=== PATIENT | male | born 1965 | race African-American/Black ===

== ENCOUNTER 2018-01-17 16:52 | Inpatient (IN) | payer OTHER ==
[2018-01-17] MEDS ORDERED: MELATONIN 5 MG TABLETS PO PRN (22:00)
--- NOTE | 2018-01-17 22:43 | HP ---
COWS - Scale Resting Pulse: 0= [place] 80 or Below Sweatin=Flushed/Facial Moisture Restless Observation: 1= Difficult to Sit Still Pupil Size: 1= Pupils >than Normal Bone or Joint Aches: 4=Acute Joint/Muscle Pain Runny Nose/ Eye Tearin= Nasal Congestion GI Upset > 30mins: 2= Nausea/Diarrhea (diarrhea x 1) Tremor Observation: 2= Slight Tremor Visible Yawning Observation: 0= None Anxiety or Irritability: 4=Extreme Anxiety Goose Flesh Skin: 0=Smooth Skin COWS Score: 17 Admission [facility] Chief Complaint: Heroin withdrawal symptoms Allergies/Adverse Reactions: Allergies Allergy/AdvReac Type Severity Reaction Status Date / Time No Known Allergies Allergy Verified 01/17/18 22:41 History of Present Illness: 53 years old male with a 26 years history of heroin dependence is seeking admission to detox. Patient has been in previous detox and reports 13 years of sobriety. He has medical history of hypertension. He denies suicide attempt and suicidal ideation at this time. Patient reports that he was first admitted to [facility] in 2005. Exam Limitations: No Limitations - Ebola screening Have you traveled outside of the country in the last 21 days: No Have you had contact with anyone from an Ebola affected area: No Do you have a fever: No - Review of Systems Constitutional: Chills, Malaise, Changes in sleep EENT: reports: Blurred Vision, Nose Congestion Respiratory: reports: No Symptoms reported Cardiac: reports: No Symptoms Reported GI: reports: Diarrhea (x 2), Poor Appetite, Poor Fluid Intake, Abdominal cramping : reports: No Symptoms Reported Musculoskeletal: reports: Back Pain Integumentary: reports: Dryness Neuro: reports: Tremors Endocrine: reports: No Symptoms Reported Hematology: reports: No Symptoms Reported Psychiatric: reports: Mood/Affect Appropiate, Depressed Other Systems: Reviewed and Negative Patient History - Patient Medical History Hx Anemia: No Hx Asthma: No Hx Chronic Obstructive Pulmonary Disease (COPD): No Hx Cancer: No Hx Cardiac Disorders: No Hx Congestive Heart Failure: No Hx Hypertension: Yes (Atenolol) Hx Hypercholesterolemia: No Hx Pacemaker: No HX Cerebrovascular Accident: No Hx Seizures: No Hx Diabetes: No Hx Gastrointestinal Disorders: No Hx Liver Disease: No Hx Genitourinary Disorders: No Hx Sexually Transmitted Disorders: No Hx Renal Disease (ESRD): No Hx Thyroid Disease: No Hx Human Immunodeficiency Virus (HIV): No (Negative 13 years ago) Hx Hepatitis C: No Hx Depression: Yes Hx Suicide Attempt: No (Denies suicidal ideation at this time) Hx Bipolar Disorder: No Hx Schizophrenia: No - Patient Surgical History Past Surgical History: Yes Other Surgical History: HERNIA REPAIR 2009 - PPD History Previous Implant?: No Documented Results: Negative w/proof Implanted On Prior R Admission?: No PPD to be Administered?: Yes - Reproductive History Patient is a Female of Child Bearing Age (11 -55 yrs old): No (MALE) - Smoking Cessation Smoking history: Current every day smoker Have you smoked in the past 12 months: Yes Aproximately how many cigarettes per day: 4 Hx Chewing Tobacco Use: No Initiated information on smoking cessation: Yes 'Breaking Loose' booklet given: 01/17/18 - Substance & Tx. History Hx Alcohol Use: No Hx Substance Use: Yes Substance Use Type: Heroin, Marijuana, Opiates Hx Substance Use Treatment: Yes - Substances Abused Heroin Route: Inhalation Frequency: Daily Amount used: 5 bags Age of first use: 14 Date of Last Use: 01/17/18 Marijuana/Hashish Route: Smoking Frequency: Daily Amount used: 2 pulls Age of first use: 13 Date of Last Use: 01/17/18 Family Disease History - Family Disease History Family Disease History: Diabetes: Grandparent, Heart Disease: Sister, Other: Father (Colitis -), Mother (HIV- ), Brother (HIV- ) Admission Physical Exam S - Physical General Appearance: Yes: Moderate Distress, Tremorous, Anxious HEENTM: Yes: EOMI, Normal ENT Inspection, Normal Voice, RAJINDER Respiratory: Yes: Lungs Clear, Normal Breath Sounds, No Respiratory Distress Neck: Yes: Supple Breast: Yes: Breast Exam Deferred Cardiology: Yes: Regular Rhythm, Tachycardia Abdominal: Yes: Normal Bowel Sounds Genitourinary: Yes: Within Normal Limits Back: Yes: Normal Inspection Musculoskeletal: Yes: Back pain Extremities: Yes: Tremors Neurological: Yes: Alert, Normal Mood/Affect Integumentary: Yes: Warm Lymphatic: Yes: Within Normal Limits - Diagnostic (1) Hypertension Current Visit: Yes Status: Chronic Qualifiers: Hypertension type: essential hypertension Qualified Code(s): I10 - Essential (primary) hypertension (2) Opioid dependence with withdrawal Current Visit: Yes Status: Chronic Cleared for Admission [facility] - Detox or Rehab [facility] Level of Care: Medically Managed Detox Regimen/Protocol: Methadone
[2018-01-17] MEDS ORDERED: METHADONE HCL 10 MG TABLET (FOR DETOX USE ONLY) PO ONE ×2 (23:00→23:02)
[2018-01-17] MEDS ORDERED: MAGNESIUM HYDROX 2400MG/30ML ORAL SUSPENSION 30 ML CUP PO PRN (23:02)
[2018-01-17] MEDS ORDERED: MENTHOL/PHENOL 1 EACH UD MM PRN (23:02)
[2018-01-17] MEDS ORDERED: LOPERAMIDE HCL 2 MG CAPSULE PO PRN (23:02)
[2018-01-17] MEDS ORDERED: P-EPHED 60MG/TRIPROLIDI 2.5MG TABLET PO PRN (23:02)
[2018-01-17] MEDS ORDERED: MAG HYDROX/AL HYDROX/SIMETH 30 ML UNIT-DOSE CUP PO PRN (23:02)
[2018-01-17] MEDS ORDERED: NICOTINE POLACRILEX 2 MG GUM BC PRN (23:02)
[2018-01-17] MEDS ORDERED: guaiFENesin/D-METHORPHAN HB 10 ML UNIT-DOSE CUPS PO PRN (23:02)
[2018-01-17] MEDS ORDERED: diazePAM 5 MG TABLET PO PRN (23:02)
[2018-01-17] MEDS ORDERED: MAGNESIUM CITRATE 300 ML BOTTLE PO PRN (23:02)
[2018-01-17 23:31] VITALS: BMI 27.7
[2018-01-18] MEDS ORDERED: diazePAM 5 MG TABLET PO PRN (01:16)
[2018-01-18] MEDS ORDERED: METHADONE HCL 10 MG TABLET (FOR DETOX USE ONLY) PO ONE ×4 (01:16→23:00)
[2018-01-18] MEDS ORDERED: cloNIDine HCL 0.1 MG TABLET PO ONE (02:25)
[2018-01-18] MEDS: diazePAM 5 MG TABLET PO PRN ×3 (02:29→22:23)
--- NOTE | 2018-01-18 02:58 | PN ---
BHS Progress Note Note: Patient's blood pressure was B/P 173/107. Patient is asymptomatic. He reports that he is not compliant with his antihypertensive medication administration Vital Signs Temperature 97.6 F 01/18/18 02:59 Pulse Rate 71 01/18/18 02:59 Respiratory Rate 20 01/18/18 02:59 Blood Pressure 173/107 H 01/18/18 02:59 O2 Sat by Pulse Oximetry (%) Action: Clonidine 0.1mg tablet oral ordered.
[2018-01-18] MEDS: PRENATAL VITAMINS W/ FOLIC ACID TABLET (FP) PO SCH (10:08)
[2018-01-18] MEDS: NICOTINE 14 MG/24 HOURS TOPICAL PATCH TD SCH (10:10)
--- NOTE | 2018-01-18 10:43 | PN ---
BHS COWS - Scale Resting Pulse: 0= [place] 80 or Below Sweatin= Chills/Flushing Restless Observation: 1= Difficult to Sit Still Pupil Size: 1= Pupils >than Normal Bone or Joint Aches: 2= Severe Diffuse Aches Runny Nose/ Eye Tearin= Nasal Congestion GI Upset > 30mins: 0= None Tremor Observation of Outstretched Hands: 2= Slight Tremor Visible Yawning Observation: 0= None Anxiety or Irritability: 0= None Goose Flesh Skin: 0=Smooth Skin COWS Score: 8 BHS Progress Note (SOAP) Subjective: PATIENT C/O CHILLS, RUNNY NOSE, BODY ACHES AND INTERRUPTED SLEEP. Objective: 01/18/18 10:40 Vital Signs Temperature 98.1 F 01/18/18 09:22 Pulse Rate 70 01/18/18 09:22 Respiratory Rate 18 01/18/18 09:22 Blood Pressure 173/99 H 01/18/18 09:22 O2 Sat by Pulse Oximetry (%) SKIN WARM, + FACIAL MOISTURE ENT +NASAL CONGESTION CAR S1S2 RESP CTA BL EXT FULL ROM, AMB AD POPPY, +TREMORS VISIBLE Assessment: 01/18/18 10:42 ELEVATED BP WITHDRAWAL SX Plan: WILL ADD AMLODIPINE 10MG DAILY CONTINUE DETOX REGIMEN ENCOURAGE ORAL FLUIDS CONTINUE TO MONITOR CLINICALLY
[2018-01-18 11:44] LABS: HEMATOCRIT 35.8 % (35.4-49); HEMOGLOBIN 11.7 GM/dL (11.7-16.9); MCH 28.2 pg (25.7-33.7); MCHC 32.7 g/dl (32.0-35.9); MEAN CELL VOLUME 86.1 fl (80-96); MEAN PLT VOLUME 8.7 fl (7.5-11.1); PLATELET COUNT 194 K/MM3 (134-434); RBC 4.16 M/mm3 (4.00-5.60); RDW 13.9 % (11.9-15.9); WHITE BLOOD COUNT 5.4 K/mm3 (4.0-10.0)
[2018-01-18 11:47] LABS: ALBUMIN 3.2 g/dl (3.4-5.0); ALK PHOS 61 U/L (45-117); ANION GAP 8 MMOL/L (8-16); BILIRUBIN,TOTAL 0.2 mg/dL (0.2-1); BLOOD UREA NITROGEN 17 mg/dL (7-18); CALCIUM 8.6 mg/dL (8.5-10.1); CHLORIDE 110 mmol/L (98-107); CO2 29 mmol/L (21-32); CREATININE 1.2 mg/dL (0.55-1.3); GLUCOSE,RANDOM 93 mg/dL (74-106); POTASSIUM 3.7 mmol/L (3.5-5.1); SGOT/AST 9 U/L (15-37); SGPT/ALT 10 U/L (13-61); SODIUM 146 mmol/L (136-145); TOT PROT 5.9 g/dl (6.4-8.2)
[2018-01-18] MEDS: amLODIPine BESYLATE 10 MG TABLET (FP) PO SCH (12:17)
[2018-01-18] MEDS: THIAMINE HCL 100 MG TABLET (FP) PO SCH (22:22)
--- NOTE | 2018-01-19 09:52 | EKG ---
Test Reason : Blood Pressure : / mmHG Vent. Rate : 061 BPM Atrial Rate : 061 BPM P-R Int : 140 ms QRS Dur : 094 ms QT Int : 406 ms P-R-T Axes : 072 062 054 degrees QTc Int : 408 ms NORMAL SINUS RHYTHM NONSPECIFIC T WAVE ABNORMALITY ABNORMAL ECG NO PREVIOUS ECGS AVAILABLE Confirmed by MIRNA RIDLEY MD ([id number]) on 01/19/2018 9:52:16 AM Referred By: Confirmed By:MIRNA RIDLEY MD
[2018-01-19] MEDS ORDERED: METHADONE HCL 5 MG TABLET (FOR DETOX USE ONLY) PO ONE (10:00)
[2018-01-19] MEDS ORDERED: METHADONE HCL 10 MG TABLET (FOR DETOX USE ONLY) PO ONE (10:00)
[2018-01-19] MEDS: cloNIDine HCL 0.1 MG TABLET PO SCH ×2 (10:08→22:15)
[2018-01-19] MEDS: PRENATAL VITAMINS W/ FOLIC ACID TABLET (FP) PO SCH (10:08)
[2018-01-19] MEDS: amLODIPine BESYLATE 10 MG TABLET (FP) PO SCH (10:08)
[2018-01-19] MEDS: NICOTINE 14 MG/24 HOURS TOPICAL PATCH TD SCH (10:09)
--- NOTE | 2018-01-19 10:21 | PN ---
BHS COWS - Scale Resting Pulse: 0= [place] 80 or Below Sweatin= Chills/Flushing Restless Observation: 1= Difficult to Sit Still Pupil Size: 1= Pupils >than Normal Bone or Joint Aches: 1= Mild Discomfort Runny Nose/ Eye Tearin= None GI Upset > 30mins: 0= None Tremor Observation of Outstretched Hands: 0= None Yawning Observation: 0= None Anxiety or Irritability: 2=Irritable/Anxious Goose Flesh Skin: 0=Smooth Skin COWS Score: 6 BHS Progress Note (SOAP) Subjective: PATIENT C/O MILD BODY ACHES, CHILLS AND ANXIETY. Objective: 01/19/18 10:18 Vital Signs Temperature 99.0 F 01/19/18 10:00 Pulse Rate 80 01/19/18 10:00 Respiratory Rate 20 01/19/18 10:00 Blood Pressure 148/96 01/19/18 10:00 O2 Sat by Pulse Oximetry (%) Vital Signs Temperature 99.0 F 01/19/18 10:00 Pulse Rate 80 01/19/18 10:00 Respiratory Rate 20 01/19/18 10:00 Blood Pressure 148/96 01/19/18 10:00 O2 Sat by Pulse Oximetry (%) Laboratory Tests 01/18/18 01/18/18 01/18/18 07:00 07:00 07:00 WBC 5.4 RBC 4.16 Hgb 11.7 Hct 35.8 MCV 86.1 MCH 28.2 MCHC 32.7 RDW 13.9 Plt Count 194 MPV 8.7 Sodium 146 H Potassium 3.7 Chloride 110 H Carbon Dioxide 29 Anion Gap 8 BUN 17 Creatinine 1.2 Creat Clearance w eGFR > 60 Random Glucose 93 Calcium 8.6 Total Bilirubin 0.2 AST 9 L ALT 10 L Alkaline Phosphatase 61 Total Protein 5.9 L Albumin 3.2 L RPR Titer Nonreactive PE: SKIN WARM AND DRY CAR S1S2 RESP CTA BL EXT FULL ROM, AMB AD POPPY ALERT AND ORIENTED X 3 Assessment: 01/19/18 10:20 WITHDRAWAL SX ELEVATED BP Plan: CONTINUE DETOX REGIMEN ENCOURAGED ORAL FLUIDS ADD CLONIDINE 0.1MG BID TO REGIMEN FOR BP MANAGEMENT CONTINUE TO MONITOR CLINICALLY
[2018-01-19] MEDS: diazePAM 5 MG TABLET PO PRN ×2 (17:12→22:15)
[2018-01-19 21:26] LABS: URINE APPEARANCE CLEAR; URINE BILIRUBIN NEGATIVE (<2.0 mg/dL); URINE COLOR STRAW; URINE GLUCOSE (UA) NEGATIVE (NEGATIVE); URINE KETONE NEGATIVE (NEGATIVE); URINE LEUK ESTERASE NEGATIVE (NEGATIVE); URINE NITRITE NEGATIVE (NEGATIVE); URINE PROTEIN NEGATIVE (NEGATIVE); URINE UROBILINOGEN NEGATIVE mg/dL (0.2-1.0)
[2018-01-19] MEDS: TOLNAFTATE 1% CREAM 15 GM TUBE TP SCH (22:14)
[2018-01-19] MEDS: THIAMINE HCL 100 MG TABLET (FP) PO SCH (22:14)
[2018-01-20] MEDS ORDERED: METHADONE HCL 5 MG TABLET (FOR DETOX USE ONLY) PO ONE ×2 (10:00)
[2018-01-20] MEDS: PRENATAL VITAMINS W/ FOLIC ACID TABLET (FP) PO SCH (10:15)
[2018-01-20] MEDS: amLODIPine BESYLATE 10 MG TABLET (FP) PO SCH (10:15)
[2018-01-20] MEDS: TOLNAFTATE 1% CREAM 15 GM TUBE TP SCH ×2 (10:15→21:48)
[2018-01-20] MEDS: cloNIDine HCL 0.1 MG TABLET PO SCH ×2 (10:15→21:47)
[2018-01-20] MEDS: NICOTINE 14 MG/24 HOURS TOPICAL PATCH TD SCH (10:15)
--- NOTE | 2018-01-20 12:04 | PN ---
BHS Progress Note (SOAP) Subjective: Sweating, interrupted sleep Objective: 01/20/18 12:01 Last Vital Signs Temp Pulse Resp BP Pulse Ox 97.1 F L 83 18 144/92 01/20/18 09:08 01/20/18 09:08 01/20/18 09:08 01/20/18 09:08 B/P elevated (has HTN, on medication) Laboratory Tests 01/18/18 01/18/18 01/18/18 07:00 07:00 07:00 WBC 5.4 RBC 4.16 Hgb 11.7 Hct 35.8 MCV 86.1 MCH 28.2 MCHC 32.7 RDW 13.9 Plt Count 194 MPV 8.7 Sodium 146 H Potassium 3.7 Chloride 110 H Carbon Dioxide 29 Anion Gap 8 BUN 17 Creatinine 1.2 Creat Clearance w eGFR > 60 Random Glucose 93 Calcium 8.6 Total Bilirubin 0.2 AST 9 L ALT 10 L Alkaline Phosphatase 61 Total Protein 5.9 L Albumin 3.2 L Urine Color Urine Appearance Urine pH Ur Specific [place] Urine Protein Urine Glucose (UA) Urine Ketones Urine Blood Urine Nitrite Urine Bilirubin Urine Urobilinogen Ur Leukocyte Esterase RPR Titer Nonreactive 01/19/18 14:31 WBC RBC Hgb Hct MCV MCH MCHC RDW Plt Count MPV Sodium Potassium Chloride Carbon Dioxide Anion Gap BUN Creatinine Creat Clearance w eGFR Random Glucose Calcium Total Bilirubin AST ALT Alkaline Phosphatase Total Protein Albumin Urine Color Straw Urine Appearance Clear Urine pH 5.0 Ur Specific [place] 1.006 L Urine Protein Negative Urine Glucose (UA) Negative Urine Ketones Negative Urine Blood Negative Urine Nitrite Negative Urine Bilirubin Negative Urine Urobilinogen Negative Ur Leukocyte Esterase Negative RPR Titer Labs reviewed Assessment: 01/20/18 12:03 Withdrawal symptoms Plan: Continue detox Encouraged PO water intake
[2018-01-20] MEDS: diazePAM 5 MG TABLET PO PRN (12:13)
[2018-01-20] MEDS: THIAMINE HCL 100 MG TABLET (FP) PO SCH (21:47)
[2018-01-21] MEDS: amLODIPine BESYLATE 10 MG TABLET (FP) PO SCH (09:04)
[2018-01-21] MEDS: PRENATAL VITAMINS W/ FOLIC ACID TABLET (FP) PO SCH (09:04)
[2018-01-21] MEDS: cloNIDine HCL 0.1 MG TABLET PO SCH ×2 (09:04→22:15)
[2018-01-21] MEDS: TOLNAFTATE 1% CREAM 15 GM TUBE TP SCH ×2 (09:05→22:15)
[2018-01-21] MEDS: IBUPROFEN 400 MG TABLET (FP) PO PRN ×2 (09:57→22:29)
[2018-01-21] MEDS ORDERED: METHADONE HCL 5 MG TABLET (FOR DETOX USE ONLY) PO ONE (10:00)
[2018-01-21] MEDS ORDERED: METHADONE HCL 10 MG TABLET (FOR DETOX USE ONLY) PO ONE (10:00)
[2018-01-21] MEDS: NICOTINE 14 MG/24 HOURS TOPICAL PATCH TD SCH (11:21)
[2018-01-21] MEDS: ACETAMINOPHEN 325 MG TABLET (FP) PO PRN (13:36)
--- NOTE | 2018-01-21 13:36 | PN ---
S Progress Note (SOAP) Subjective: Chills, sweating, anxious; c/o groin pain (chronic) stating he had swelling before in which his doctor removed fluid and that he has been following up with his specialist and that he has follow up appointment post discharge. Patient instructed to use warm compress prn and to take motrin prn until seen by his specialist. Objective: 01/21/18 13:34 Last Vital Signs Temp Pulse Resp BP Pulse Ox 96.7 F L 76 18 143/92 01/21/18 09:00 01/21/18 09:00 01/21/18 09:00 01/21/18 09:00 Laboratory Tests 01/18/18 01/18/18 01/18/18 07:00 07:00 07:00 WBC 5.4 RBC 4.16 Hgb 11.7 Hct 35.8 MCV 86.1 MCH 28.2 MCHC 32.7 RDW 13.9 Plt Count 194 MPV 8.7 Sodium 146 H Potassium 3.7 Chloride 110 H Carbon Dioxide 29 Anion Gap 8 BUN 17 Creatinine 1.2 Creat Clearance w eGFR > 60 Random Glucose 93 Calcium 8.6 Total Bilirubin 0.2 AST 9 L ALT 10 L Alkaline Phosphatase 61 Total Protein 5.9 L Albumin 3.2 L Urine Color Urine Appearance Urine pH Ur Specific [place] Urine Protein Urine Glucose (UA) Urine Ketones Urine Blood Urine Nitrite Urine Bilirubin Urine Urobilinogen Ur Leukocyte Esterase RPR Titer Nonreactive 01/19/18 14:31 WBC RBC Hgb Hct MCV MCH MCHC RDW Plt Count MPV Sodium Potassium Chloride Carbon Dioxide Anion Gap BUN Creatinine Creat Clearance w eGFR Random Glucose Calcium Total Bilirubin AST ALT Alkaline Phosphatase Total Protein Albumin Urine Color Straw Urine Appearance Clear Urine pH 5.0 Ur Specific [place] 1.006 L Urine Protein Negative Urine Glucose (UA) Negative Urine Ketones Negative Urine Blood Negative Urine Nitrite Negative Urine Bilirubin Negative Urine Urobilinogen Negative Ur Leukocyte Esterase Negative RPR Titer Labs reviewed Assessment: 01/21/18 13:36 Withdrawal sxs Plan: Continue detox Encouraged PO water intake
[2018-01-21] MEDS: THIAMINE HCL 100 MG TABLET (FP) PO SCH (22:15)
[2018-01-22] MEDS ORDERED: METHADONE HCL 5 MG TABLET (FOR DETOX USE ONLY) PO ONE (06:00)
[2018-01-22] MEDS ORDERED: TETRAHYDROZOLINE HCL EYE DROPS OU PRN (09:34)
--- NOTE | 2018-01-22 09:35 | PN ---
[facility] Progress Note Note: Vital Signs Temperature 98.4 F 01/22/18 06:08 Pulse Rate 76 01/22/18 06:08 Respiratory Rate 18 01/22/18 06:30 Blood Pressure 133/81 01/22/18 06:08 O2 Sat by Pulse Oximetry (%) Laboratory Last Values WBC 5.4 K/mm3 (4.0-10.0) 01/18/18 07:00 RBC 4.16 M/mm3 (4.00-5.60) 01/18/18 07:00 Hgb 11.7 GM/dL (11.7-16.9) 01/18/18 07:00 Hct 35.8 % (35.4-49) 01/18/18 07:00 MCV 86.1 fl (80-96) 01/18/18 07:00 MCH 28.2 pg (25.7-33.7) 01/18/18 07:00 MCHC 32.7 g/dl (32.0-35.9) 01/18/18 07:00 RDW 13.9 % (11.9-15.9) 01/18/18 07:00 Plt Count 194 K/MM3 (134-434) 01/18/18 07:00 MPV 8.7 fl (7.5-11.1) 01/18/18 07:00 Sodium 146 mmol/L (136-145) H 01/18/18 07:00 Potassium 3.7 mmol/L (3.5-5.1) 01/18/18 07:00 Chloride 110 mmol/L (98-107) H 01/18/18 07:00 Carbon Dioxide 29 mmol/L (21-32) 01/18/18 07:00 Anion Gap 8 MMOL/L (8-16) 01/18/18 07:00 BUN 17 mg/dL (7-18) 01/18/18 07:00 Creatinine 1.2 mg/dL (0.55-1.3) 01/18/18 07:00 Creat Clearance w eGFR > 60 (>60) 01/18/18 07:00 Random Glucose 93 mg/dL (74-106) 01/18/18 07:00 Calcium 8.6 mg/dL (8.5-10.1) 01/18/18 07:00 Total Bilirubin 0.2 mg/dL (0.2-1) 01/18/18 07:00 AST 9 U/L (15-37) L 01/18/18 07:00 ALT 10 U/L (13-61) L 01/18/18 07:00 Alkaline Phosphatase 61 U/L (45-117) 01/18/18 07:00 Total Protein 5.9 g/dl (6.4-8.2) L 01/18/18 07:00 Albumin 3.2 g/dl (3.4-5.0) L 01/18/18 07:00 Urine Color Straw 01/19/18 14:31 Urine Appearance Clear 01/19/18 14:31 Urine pH 5.0 (5.0-8.0) 01/19/18 14:31 Ur Specific [place] 1.006 (1.010-1.035) L 01/19/18 14:31 Urine Protein Negative (NEGATIVE) 01/19/18 14:31 Urine Glucose (UA) Negative (NEGATIVE) 01/19/18 14:31 Urine Ketones Negative (NEGATIVE) 01/19/18 14:31 Urine Blood Negative (NEGATIVE) 01/19/18 14:31 Urine Nitrite Negative (NEGATIVE) 01/19/18 14:31 Urine Bilirubin Negative (<2.0 mg/dL) 01/19/18 14:31 Urine Urobilinogen Negative mg/dL (0.2-1.0) 01/19/18 14:31 Ur Leukocyte Esterase Negative (NEGATIVE) 01/19/18 14:31 RPR Titer Nonreactive (NONREACTIVE) 01/18/18 07:00 c/o of interrupted sleep, body aches, fatigue Aox3 no distress no adventitious breath sounds full ROM ambulatory withdrawal sx increase fluids continue detox continue to monitor d/c in AM
[2018-01-22] MEDS ORDERED: METHADONE HCL 10 MG TABLET (FOR DETOX USE ONLY) PO ONE (10:00)
[2018-01-22] MEDS: PRENATAL VITAMINS W/ FOLIC ACID TABLET (FP) PO SCH (10:11)
[2018-01-22] MEDS: cloNIDine HCL 0.1 MG TABLET PO SCH ×2 (10:12→22:32)
[2018-01-22] MEDS: TOLNAFTATE 1% CREAM 15 GM TUBE TP SCH ×2 (10:12→22:32)
[2018-01-22] MEDS: amLODIPine BESYLATE 10 MG TABLET (FP) PO SCH (10:13)
[2018-01-22] MEDS: NICOTINE 14 MG/24 HOURS TOPICAL PATCH TD SCH (10:14)
[2018-01-22] MEDS: ACETAMINOPHEN 325 MG TABLET (FP) PO PRN (17:15)
[2018-01-22] MEDS: THIAMINE HCL 100 MG TABLET (FP) PO SCH (22:32)
[2018-01-23] MEDS ORDERED: METHADONE HCL 5 MG TABLET (FOR DETOX USE ONLY) PO ONE (06:00)
[2018-01-23 06:24] VITALS: BP 136/80; PULSE 69; TEMP 98.1
[2018-01-23] MEDS: amLODIPine BESYLATE 10 MG TABLET (FP) PO SCH (09:10)
--- NOTE | 2018-01-23 18:05 | DS ---
[facility] Detox Discharge Summary Admission Date: 01/17/18 Discharge Date: 01/23/18 - History Present History: Opioid Dependence Additional Comments: Patient discharged today and denied any complaints. Patient in nad. Pertinent Past History: HTN Nicotine dependence - Physical Exam Results Vital Signs: Vital Signs Temperature 98.1 F 01/23/18 06:23 Pulse Rate 69 01/23/18 06:23 Respiratory Rate 18 01/23/18 06:23 Blood Pressure 136/80 01/23/18 06:23 O2 Sat by Pulse Oximetry (%) Pertinent Admission Physical Exam Findings: Withdrawal sxs Laboratory Tests 01/18/18 01/18/18 01/18/18 07:00 07:00 07:00 WBC 5.4 RBC 4.16 Hgb 11.7 Hct 35.8 MCV 86.1 MCH 28.2 MCHC 32.7 RDW 13.9 Plt Count 194 MPV 8.7 Sodium 146 H Potassium 3.7 Chloride 110 H Carbon Dioxide 29 Anion Gap 8 BUN 17 Creatinine 1.2 Creat Clearance w eGFR > 60 Random Glucose 93 Calcium 8.6 Total Bilirubin 0.2 AST 9 L ALT 10 L Alkaline Phosphatase 61 Total Protein 5.9 L Albumin 3.2 L Urine Color Urine Appearance Urine pH Ur Specific [place] Urine Protein Urine Glucose (UA) Urine Ketones Urine Blood Urine Nitrite Urine Bilirubin Urine Urobilinogen Ur Leukocyte Esterase RPR Titer Nonreactive 01/19/18 14:31 WBC RBC Hgb Hct MCV MCH MCHC RDW Plt Count MPV Sodium Potassium Chloride Carbon Dioxide Anion Gap BUN Creatinine Creat Clearance w eGFR Random Glucose Calcium Total Bilirubin AST ALT Alkaline Phosphatase Total Protein Albumin Urine Color Straw Urine Appearance Clear Urine pH 5.0 Ur Specific [place] 1.006 L Urine Protein Negative Urine Glucose (UA) Negative Urine Ketones Negative Urine Blood Negative Urine Nitrite Negative Urine Bilirubin Negative Urine Urobilinogen Negative Ur Leukocyte Esterase Negative RPR Titer Labs reviewed - Treatment Hospital Course: Detox Protocol Followed, Detoxed Safely, Responded well, Discharged Condition Good - Medication Discharge Medications: Ambulatory Orders Amlodipine Besylate [Norvasc -] 10 mg PO DAILY 01/18/18 Amlodipine Besylate [Norvasc -] 10 mg PO DAILY #30 tablet 01/22/18 - Diagnosis (1) Depression Status: Chronic (2) Nicotine dependence Status: Chronic (3) Opioid dependence with withdrawal Status: Acute (4) Hypertension Status: Chronic Qualifiers: Hypertension type: essential hypertension Qualified Code(s): I10 - Essential (primary) hypertension - AMA Did Patient Leave Against Medical Advice: No (F/U with your PCP within 1-2 weeks )
== END 2018-01-23 09:32 | disposition home or self-care (01) | DRG 773 ==
LOC: YASAS 16:52 → Y3N 23:47
PROC: HZ2ZZZZ Detoxification Services for Substance Abuse Treatment (ICD-10-PCS; principal; 2018-01-23)
DX: F11.23 Opioid dependence with withdrawal (principal); F17.210 Nicotine dependence, cigarettes, uncomplicated; F32.9 Major depressive disorder, single episode, unspecified; I10 Essential (primary) hypertension; R00.0 Tachycardia, unspecified
CPT/HCPCS: 36415; 80053; 81003; 85027; 86593; 93005; 93010; J0735

== ENCOUNTER 2018-11-29 11:56 | Inpatient (IN) | payer OTHER ==
[2018-11-29 16:42] VITALS: BMI 29.2
--- NOTE | 2018-11-29 17:50 | HP ---
COWS - Scale Resting Pulse: 1= [place] 81-100 Sweatin= Chills/Flushing Restless Observation: 1= Difficult to Sit Still Pupil Size: 1= Pupils >than Normal Bone or Joint Aches: 2= Severe Diffuse Aches Runny Nose/ Eye Tearin= Nasal Congestion GI Upset > 30mins: 1= Stomach Cramp Tremor Observation: 1= Tremor [place], Not Seen Yawning Observation: 2= >3x During Session Anxiety or Irritability: 2=Irritable/Anxious Goose Flesh Skin: 0=Smooth Skin COWS Score: 13 CIWA Score - Admission Criteria [facility] Guidelines: Admission for Medically Managed Detox: Requires at least one of the followin. CIWA greater than 12 2. Seizures within the past 24 hours 3. Delirium tremens within the past 24 hours 4. Hallucinations within the past 24 hours 5. Acute intervention needed for co occurring medical disorder 6. Acute intervention needed for co occurring psychiatric disorder 7. Severe withdrawal that cannot be handled at a lower level of care (continued vomiting, continued diarrhea, abnormal vital signs) requiring intravenous medication and/or fluids 8. Admission ROS [facility] Chief Complaint: heroin detox Allergies/Adverse Reactions: Allergies Allergy/AdvReac Type Severity Reaction Status Date / Time No Known Allergies Allergy Verified 11/29/18 16:36 History of Present Illness: Patient is a 53 yo M with a PMhx of HTN, presenting here for heroin detox. Sniffs 3-4 bags of heroin daily. denies IV drug use. Has been using heroin since 14. Says he's been clean since 2005 then last his last year. Never overdosed. Does not carry a narcan pen with him. Never participated in a methadone or suboxone program. 3 cigarettes a day. unemployed. homeless in a long term. - Ebola screening Have you traveled outside of the country in the last 21 days: No Have you had contact with anyone from an Ebola affected area: No - Review of Systems Respiratory: denies: Cough, Shortness of Breath Cardiac: denies: Chest Pain, Palpitations Neuro: reports: Headache. denies: Numbness, Paresthesia Patient History - Patient Medical History Hx Anemia: No Hx Asthma: No Hx Chronic Obstructive Pulmonary Disease (COPD): No Hx Cancer: No Hx Cardiac Disorders: No Hx Congestive Heart Failure: No Hx Hypertension: Yes (Atenolol) Hx Hypercholesterolemia: No Hx Pacemaker: No HX Cerebrovascular Accident: No Hx Seizures: No Hx Diabetes: No Hx Gastrointestinal Disorders: No Hx Liver Disease: No Hx Genitourinary Disorders: No Hx Sexually Transmitted Disorders: No Hx Renal Disease (ESRD): No Hx Thyroid Disease: No Hx Human Immunodeficiency Virus (HIV): No (Negative 13 years ago) Hx Hepatitis C: No Hx Depression: Yes Hx Suicide Attempt: No (Denies suicidal ideation at this time) Hx Bipolar Disorder: No Hx Schizophrenia: No - Patient Surgical History Past Surgical History: Yes Other Surgical History: HERNIA REPAIR 2009 - PPD History Date: 01/20/18 - Smoking Cessation Smoking history: Current every day smoker Have you smoked in the past 12 months: Yes Aproximately how many cigarettes per day: 4 Hx Chewing Tobacco Use: No Initiated information on smoking cessation: Yes 'Breaking Loose' booklet given: 11/29/18 - Substances abused Heroin Substance route: Inhalation Frequency: Daily Amount used: 5BAGS Age of first use: 14 Date of last use: 11/28/18 Family Disease History - Family Disease History Family Disease History: Diabetes: Grandparent, Heart Disease: Sister, Other: Father (Colitis -), Mother (HIV- ), Brother (HIV- ) Admission Physical Exam BHS - Vital Signs Vital Signs: Vital Signs - 24 hr 11/29/18 16:36 Temperature 97.8 F Pulse Rate 63 Respiratory 18 Rate Blood Pressure 134/115 H - Physical General Appearance: Yes: No Apparent Distress HEENTM: Yes: Other (poor dentition) Respiratory: Yes: No Respiratory Distress, No Accessory Muscle Use Cardiology: Yes: Regular Rhythm, Regular Rate Abdominal: Yes: Normal Bowel Sounds, Non Tender Extremities: No: Tremors 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 NML intact, Fully Oriented, Motor Strength 5/5 - Diagnostic (1) Heroin abuse Current Visit: Yes Status: Acute (2) Hypertensive urgency Current Visit: Yes Status: Acute (3) Opioid dependence with withdrawal Current Visit: No Status: Acute (4) Depression Current Visit: No Status: Chronic (5) Hypertension Current Visit: No Status: Chronic Qualifiers: Hypertension type: essential hypertension Qualified Code(s): I10 - Essential (primary) hypertension Screened but not Admitted - Documentation of Visit Level of Care Recommended at this Time: ER Evaluation/Care (sent to the ER for hypertensive crisis) Breathalyzer - Breathalyzer Breathalyzer: 0 Urine Drug Screen - Test Device Lot number: [id number] Expiration date: 08/12/20 - Control Is test valid?: Yes - Results Drug screen NEGATIVE: No Urine drug screen results: THC-Marijuana, FEN-Fentanyl, MOP-Opiates, MTD- Methadone Inpatient Rehab Admission - Rehab Decision to Admit Inpatient rehab admission?: No
[2018-11-29] MEDS ORDERED: MAGNESIUM CITRATE 300 ML BOTTLE PO PRN (18:11)
[2018-11-29] MEDS ORDERED: MAGNESIUM HYDROX 2400MG/30ML ORAL SUSPENSION 30 ML CUP PO PRN (18:11)
[2018-11-29] MEDS ORDERED: MENTHOL/PHENOL 1 EACH UD MM PRN (18:11)
[2018-11-29] MEDS ORDERED: ACETAMINOPHEN 325 MG TABLET (FP) PO PRN ×2 (18:11)
[2018-11-29] MEDS ORDERED: cloNIDine HCL 0.1 MG TABLET PO PRN ×2 (18:11→23:23)
[2018-11-29] MEDS ORDERED: MAG HYDROX/AL HYDROX/SIMETH 30 ML UNIT-DOSE CUP PO PRN (18:11)
[2018-11-29] MEDS ORDERED: BISMUTH SUBSALICYLATE 524 MG/30 ML UD PO PRN (18:11)
[2018-11-29] MEDS ORDERED: IBUPROFEN 400 MG TABLET (FP) PO PRN (18:11)
--- NOTE | 2018-11-29 18:18 | PN ---
Teaching Attending Note Name of Resident: Tracie Marin ATTENDING PHYSICIAN STATEMENT I saw and evaluated the patient. I reviewed the resident's note and discussed the case with the resident. I agree with the resident's findings and plan as documented. SUBJECTIVE: 53 yo h/o opioid use disorder, last year in Feb 2018, here for opioid detox- says using heroin 3 bags IH. h/o HTN- on labetolol- pt taking daily. Pt has PCP. OBJECTIVE: Vital Signs - 24 hr 11/29/18 16:36 Temperature 97.8 F Pulse Rate 63 Respiratory 18 Rate Blood Pressure 134/115 H alert and oriented ASSESSMENT AND PLAN: To ER for HTN management admit for heroin detox
[2018-11-29] MEDS ORDERED: METHADONE HCL 10 MG TABLET (FOR DETOX USE ONLY) PO ONE (18:25)
--- NOTE | 2018-11-29 23:28 | PN ---
S Progress Note Note: HOSPITAL RETURN AFTER BEING CLEARED FOR ELEVATED B/P CLIENT WAS GIVEN CLONIDINE AND TO F/U CLIENT STATES [facility] SCHEDULE IS HIS PERSONAL SCHEDULE ON HOW HE WANTS TO TAKE IT. AND NOT THE RX SCHEDULE HE PRESENTS A/O X3 NAD WILL CONT TO MONITOR CLINICALLY.
[2018-11-30] MEDS ORDERED: METHADONE HCL 10 MG TABLET (FOR DETOX USE ONLY) PO ONE (00:23)
[2018-11-30] MEDS: THIAMINE HCL 100 MG TABLET (FP) PO SCH ×2 (00:25→22:17)
[2018-11-30] MEDS: cloNIDine HCL 0.1 MG TABLET PO PRN ×3 (00:35→22:17)
--- NOTE | 2018-11-30 09:02 | PN ---
BHS COWS - Scale Resting Pulse: 0= [place] 80 or Below Sweatin= Chills/Flushing Restless Observation: 0= Sits Still Pupil Size: 1= Pupils >than Normal Bone or Joint Aches: 2= Severe Diffuse Aches Runny Nose/ Eye Tearin= Nasal Congestion GI Upset > 30mins: 1= Stomach Cramp Tremor Observation of Outstretched Hands: 2= Slight Tremor Visible Yawning Observation: 2= >3x During Session Anxiety or Irritability: 1=Feels Anxious/Irritable Goose Flesh Skin: 3=Piloerection COWS Score: 14 BHS Progress Note (SOAP) Subjective: patient c/o headache with bp elevation 150/110 one dose clonidine 0.1 mg po given begin atenolol 53 years old male 2nd patient [facility] admission admitted on 11/29/18 for opiate withdrawal sx management long history of hypertension treated with atenolol return from ER for rule out malignant hypertension return continuing bp stabilization patient is alert oriented x 3 ambulating steady gait symmetrical posture denies dizziness no chest pain no shortness of breath speech clearly coherently cardiac S1S2 regular rate rhythm respiratory clear lung sound bilaterally on auscultation skin warm Objective: 11/30/18 09:33 Vital Signs Temperature 97.9 F 11/30/18 09:29 Pulse Rate 65 11/30/18 09:29 Respiratory Rate 20 11/30/18 09:29 Blood Pressure 158/110 H 11/30/18 09:29 O2 Sat by Pulse Oximetry (%) 11/30/18 09:33 lab pending one dose of clonidine follow up bp monitoring atenolol home medication Assessment: 11/30/18 09:34 opiate withdrawal sx Plan: continue methadone detox regimen
[2018-11-30 09:54] LABS: HEMATOCRIT 39.3 % (35.4-49); HEMOGLOBIN 13.2 GM/dL (11.7-16.9); MCH 28.4 pg (25.7-33.7); MCHC 33.5 g/dl (32.0-35.9); MEAN CELL VOLUME 84.8 fl (80-96); MEAN PLT VOLUME 8.7 fl (7.5-11.1); PLATELET COUNT 195 K/MM3 (134-434); RBC 4.64 M/mm3 (4.00-5.60); RDW 13.1 % (11.9-15.9); WHITE BLOOD COUNT 4.3 K/mm3 (4.0-10.0)
[2018-11-30] MEDS ORDERED: METHADONE (DETOX) 20 MG, METHADONE (DETOX) 5 MG PO ONE (10:00)
[2018-11-30] MEDS: PRENATAL VITAMINS W/ FOLIC ACID TABLET (FP) PO SCH (10:04)
[2018-11-30 10:06] LABS: ALBUMIN 3.5 g/dl (3.4-5.0); BILIRUBIN,TOTAL 0.5 mg/dL (0.2-1); BLOOD UREA NITROGEN 17.1 mg/dL (7-18); CALCIUM 9.2 mg/dL (8.5-10.1); CREATININE 1.4 mg/dL (0.55-1.3); POTASSIUM 3.9 mmol/L (3.5-5.1); TOT PROT 6.7 g/dl (6.4-8.2)
[2018-11-30] MEDS ORDERED: ATENOLOL 50 MG TABLET (FP) PO ONE (14:00)
[2018-11-30] MEDS: hydrOXYzine PAMOATE 25 MG CAPSULE (FP) PO PRN (17:23)
[2018-11-30] MEDS: METHOCARBAMOL 500 MG TABLET PO PRN ×2 (17:25→22:17)
[2018-12-01] MEDS: cloNIDine HCL 0.1 MG TABLET PO PRN ×2 (07:05→15:19)
[2018-12-01] MEDS ORDERED: METHADONE HCL 10 MG TABLET (FOR DETOX USE ONLY) ONE (08:43)
[2018-12-01] MEDS ORDERED: METHADONE HCL 5 MG TABLET (FOR DETOX USE ONLY) ONE (08:44)
[2018-12-01] MEDS ORDERED: METHADONE HCL 10 MG TABLET (FOR DETOX USE ONLY) PO ONE (10:00)
[2018-12-01] MEDS ORDERED: METHADONE (DETOX) 20 MG, METHADONE (DETOX) 5 MG PO ONE (10:00)
[2018-12-01] MEDS: PRENATAL VITAMINS W/ FOLIC ACID TABLET (FP) PO SCH (10:13)
[2018-12-01] MEDS: ATENOLOL 50 MG TABLET (FP) PO SCH ×2 (11:24→22:50)
--- NOTE | 2018-12-01 15:22 | PN ---
BHS COWS - Scale Resting Pulse: 0= [place] 80 or Below Sweatin= Chills/Flushing Restless Observation: 0= Sits Still Pupil Size: 1= Pupils >than Normal Bone or Joint Aches: 1= Mild Discomfort Runny Nose/ Eye Tearin= Nasal Congestion GI Upset > 30mins: 1= Stomach Cramp Tremor Observation of Outstretched Hands: 2= Slight Tremor Visible Yawning Observation: 1= 1-2x During Session Anxiety or Irritability: 2=Irritable/Anxious Goose Flesh Skin: 0=Smooth Skin COWS Score: 10 BHS Progress Note (SOAP) Subjective: doing well with methadone detox regimen mild bodyache
[2018-12-01] MEDS: MELATONIN 5 MG TABLETS PO PRN (22:50)
[2018-12-01] MEDS: THIAMINE HCL 100 MG TABLET (FP) PO SCH (22:51)
[2018-12-02] MEDS: cloNIDine HCL 0.1 MG TABLET PO PRN ×3 (07:01→21:54)
[2018-12-02] MEDS: ATENOLOL 50 MG TABLET (FP) PO SCH ×2 (09:31→21:54)
[2018-12-02] MEDS: PRENATAL VITAMINS W/ FOLIC ACID TABLET (FP) PO SCH (09:31)
[2018-12-02] MEDS ORDERED: METHADONE HCL 10 MG TABLET (FOR DETOX USE ONLY) PO ONE (10:00)
[2018-12-02] MEDS ORDERED: METHADONE (DETOX) 10 MG, METHADONE (DETOX) 5 MG PO ONE (10:00)
--- NOTE | 2018-12-02 13:11 | PN ---
S COWS - Scale Resting Pulse: 0= [place] 80 or Below Sweatin= No chills or Flushing Restless Observation: 1= Difficult to Sit Still Pupil Size: 1= Pupils >than Normal Bone or Joint Aches: 1= Mild Discomfort Runny Nose/ Eye Tearin= Nasal Congestion GI Upset > 30mins: 2= Nausea/Diarrhea Tremor Observation of Outstretched Hands: 1= Tremor [place], Not Seen Yawning Observation: 1= 1-2x During Session Anxiety or Irritability: 2=Irritable/Anxious Goose Flesh Skin: 0=Smooth Skin COWS Score: 10 S Progress Note (SOAP) Subjective: alert,irritable,anxious,interrupted sleep,tremor,pain in the body and abck Objective: 12/02/18 13:10 Vital Signs Temperature 98.4 F 12/02/18 09:32 Pulse Rate 58 L 12/02/18 09:32 Respiratory Rate 18 12/02/18 09:32 Blood Pressure 141/82 12/02/18 09:32 O2 Sat by Pulse Oximetry (%) Laboratory Last Values WBC 4.3 K/mm3 (4.0-10.0) 11/30/18 08:20 RBC 4.64 M/mm3 (4.00-5.60) 11/30/18 08:20 Hgb 13.2 GM/dL (11.7-16.9) 11/30/18 08:20 Hct 39.3 % (35.4-49) 11/30/18 08:20 MCV 84.8 fl (80-96) 11/30/18 08:20 MCH 28.4 pg (25.7-33.7) 11/30/18 08:20 MCHC 33.5 g/dl (32.0-35.9) 11/30/18 08:20 RDW 13.1 % (11.9-15.9) 11/30/18 08:20 Plt Count 195 K/MM3 (134-434) 11/30/18 08:20 MPV 8.7 fl (7.5-11.1) 11/30/18 08:20 Sodium 143 mmol/L (136-145) 11/30/18 08:20 Potassium 3.9 mmol/L (3.5-5.1) 11/30/18 08:20 Chloride 109 mmol/L (98-107) H 11/30/18 08:20 Carbon Dioxide 29 mmol/L (21-32) 11/30/18 08:20 Anion Gap 5 MMOL/L (8-16) L 11/30/18 08:20 BUN 17.1 mg/dL (7-18) 11/30/18 08:20 Creatinine 1.4 mg/dL (0.55-1.3) H 11/30/18 08:20 Est GFR (CKD-EPI)AfAm 65.09 11/30/18 08:20 Est GFR (CKD-EPI)NonAf 56.16 11/30/18 08:20 Random Glucose 81 mg/dL (74-106) 11/30/18 08:20 Calcium 9.2 mg/dL (8.5-10.1) 11/30/18 08:20 Total Bilirubin 0.5 mg/dL (0.2-1) 11/30/18 08:20 AST 13 U/L (15-37) L 11/30/18 08:20 ALT 9 U/L (13-61) L 11/30/18 08:20 Alkaline Phosphatase 68 U/L (45-117) 11/30/18 08:20 Total Protein 6.7 g/dl (6.4-8.2) 11/30/18 08:20 Albumin 3.5 g/dl (3.4-5.0) 11/30/18 08:20 RPR Titer Nonreactive (NONREACTIVE) 11/30/18 08:20 Assessment: 12/02/18 13:10 withdrawal symptom Plan: continue detox methadone regimen,bp monitoring
[2018-12-02] MEDS: hydrOXYzine PAMOATE 25 MG CAPSULE (FP) PO PRN (17:13)
[2018-12-02] MEDS: THIAMINE HCL 100 MG TABLET (FP) PO SCH (21:54)
[2018-12-03] MEDS ORDERED: METHADONE HCL 10 MG TABLET (FOR DETOX USE ONLY) ONE (08:24)
[2018-12-03] MEDS ORDERED: METHADONE HCL 5 MG TABLET (FOR DETOX USE ONLY) ONE (08:24)
[2018-12-03] MEDS ORDERED: METHADONE HCL 10 MG TABLET (FOR DETOX USE ONLY) PO ONE (10:00)
[2018-12-03] MEDS ORDERED: METHADONE (DETOX) 10 MG, METHADONE (DETOX) 5 MG PO ONE (10:00)
[2018-12-03] MEDS: PRENATAL VITAMINS W/ FOLIC ACID TABLET (FP) PO SCH (10:07)
[2018-12-03] MEDS: ATENOLOL 50 MG TABLET (FP) PO SCH ×2 (10:08→21:58)
[2018-12-03] MEDS ORDERED: guaiFENesin 200 MG/10 ML 10 ML UNIT-DOSE CUPS PO PRN (10:32)
--- NOTE | 2018-12-03 13:55 | PN ---
[facility] CIWA - CIWA Score Nausea/Vomitin-No Nausea/No Vomiting Muscle Tremors: None Anxiety: 3 Agitation: 2 Paroxysmal Sweats: 3 Orientation: 0-Oriented Tacttile Disturbances: 1-Very Mild Itch/Numbness Auditory Disturbances: 0-None Visual Disturbances: 2-Mild Sensitivity Headache: 0-None Present CIWA-Ar Total Score: 11 S Progress Note (SOAP) Subjective: Body Aches, Anxious, Sweating, Eye Tearing. Objective: PATIENT A & O X 3, OBSERVED AMBULATING ON DETOX UNIT UNASSISTED. IN NO ACUTE DISTRESS. 12/03/18 13:54 Vital Signs Temperature 98.3 F 12/03/18 13:33 Pulse Rate 60 12/03/18 13:33 Respiratory Rate 18 12/03/18 13:33 Blood Pressure 157/101 H 12/03/18 13:33 O2 Sat by Pulse Oximetry (%) Laboratory Tests 11/30/18 11/30/18 11/30/18 08:20 08:20 08:20 WBC 4.3 RBC 4.64 Hgb 13.2 Hct 39.3 MCV 84.8 MCH 28.4 MCHC 33.5 RDW 13.1 Plt Count 195 MPV 8.7 Sodium 143 Potassium 3.9 Chloride 109 H Carbon Dioxide 29 Anion Gap 5 L BUN 17.1 Creatinine 1.4 H Est GFR (CKD-EPI)AfAm 65.09 Est GFR (CKD-EPI)NonAf 56.16 Random Glucose 81 Calcium 9.2 Total Bilirubin 0.5 AST 13 L ALT 9 L Alkaline Phosphatase 68 Total Protein 6.7 Albumin 3.5 RPR Titer Nonreactive LABS NOTED. Assessment: 12/03/18 13:54 WITHDRAWAL SYMPTOMS. HYPERTENSION. AZOTEMIA. 12/03/18 13:55 Plan: CONTINUE DETOX. LISINOPRIL, 10 MG PO DAILY FOR ELEVATED BLOOD PRESSURE DESPITE PREVIOUS TREATMENT. WILL CONTINUE TO MONITOR BLOOD PRESSURE.
[2018-12-03] MEDS ORDERED: LISINOPRIL 10 MG TABLET (FP) PO ONE (14:45)
[2018-12-03] MEDS ORDERED: cloNIDine HCL 0.1 MG TABLET PO ONE (17:57)
[2018-12-03] MEDS: MELATONIN 5 MG TABLETS PO PRN (21:58)
[2018-12-03] MEDS: THIAMINE HCL 100 MG TABLET (FP) PO SCH (21:58)
[2018-12-04] MEDS ORDERED: METHADONE HCL 5 MG TABLET (FOR DETOX USE ONLY) PO ONE (06:00)
[2018-12-04] MEDS: ATENOLOL 50 MG TABLET (FP) PO SCH ×2 (09:52→22:05)
[2018-12-04] MEDS: PRENATAL VITAMINS W/ FOLIC ACID TABLET (FP) PO SCH (09:52)
[2018-12-04] MEDS ORDERED: METHADONE HCL 10 MG TABLET (FOR DETOX USE ONLY) PO ONE (10:00)
[2018-12-04] MEDS ORDERED: LISINOPRIL 10 MG TABLET (FP) PO SCH (10:00)
--- NOTE | 2018-12-04 12:45 | PN ---
BHS COWS - Scale Resting Pulse: 0= [place] 80 or Below Sweatin= Chills/Flushing Restless Observation: 0= Sits Still Pupil Size: 0= Normal to Room Light Bone or Joint Aches: 1= Mild Discomfort Runny Nose/ Eye Tearin= Nasal Congestion GI Upset > 30mins: 1= Stomach Cramp Tremor Observation of Outstretched Hands: 2= Slight Tremor Visible Yawning Observation: 1= 1-2x During Session Anxiety or Irritability: 2=Irritable/Anxious Goose Flesh Skin: 0=Smooth Skin COWS Score: 9 BHS Progress Note (SOAP) Subjective: doing well with methadone detox regimen ambulating on hallway discuss aftercare with staff encourage medication assisted treatment program mixing picker tender narcan from pharmacy Objective: 12/04/18 12:43 Vital Signs Temperature 98.9 F 12/04/18 09:12 Pulse Rate 62 12/04/18 09:12 Respiratory Rate 18 12/04/18 09:12 Blood Pressure 173/100 H 12/04/18 09:12 O2 Sat by Pulse Oximetry (%) Laboratory Last Values WBC 4.3 K/mm3 (4.0-10.0) 11/30/18 08:20 RBC 4.64 M/mm3 (4.00-5.60) 11/30/18 08:20 Hgb 13.2 GM/dL (11.7-16.9) 11/30/18 08:20 Hct 39.3 % (35.4-49) 11/30/18 08:20 MCV 84.8 fl (80-96) 11/30/18 08:20 MCH 28.4 pg (25.7-33.7) 11/30/18 08:20 MCHC 33.5 g/dl (32.0-35.9) 11/30/18 08:20 RDW 13.1 % (11.9-15.9) 11/30/18 08:20 Plt Count 195 K/MM3 (134-434) 11/30/18 08:20 MPV 8.7 fl (7.5-11.1) 11/30/18 08:20 Sodium 143 mmol/L (136-145) 11/30/18 08:20 Potassium 3.9 mmol/L (3.5-5.1) 09/18/19 08:20 Chloride 109 mmol/L (98-107) H 11/30/18 08:20 Carbon Dioxide 29 mmol/L (21-32) 11/30/18 08:20 Anion Gap 5 MMOL/L (8-16) L 11/30/18 08:20 BUN 17.1 mg/dL (7-18) 11/30/18 08:20 Creatinine 1.4 mg/dL (0.55-1.3) H 11/30/18 08:20 Est GFR (CKD-EPI)AfAm 65.09 11/30/18 08:20 Est GFR (CKD-EPI)NonAf 56.16 11/30/18 08:20 Random Glucose 81 mg/dL (74-106) 11/30/18 08:20 Calcium 9.2 mg/dL (8.5-10.1) 11/30/18 08:20 Total Bilirubin 0.5 mg/dL (0.2-1) 11/30/18 08:20 AST 13 U/L (15-37) L 11/30/18 08:20 ALT 9 U/L (13-61) L 11/30/18 08:20 Alkaline Phosphatase 68 U/L (45-117) 11/30/18 08:20 Total Protein 6.7 g/dl (6.4-8.2) 11/30/18 08:20 Albumin 3.5 g/dl (3.4-5.0) 11/30/18 08:20 RPR Titer Nonreactive (NONREACTIVE) 11/30/18 08:20 lab noted 12/04/18 12:43 patient has long history of hypertension "not taking"antihypertensive medication when drinking alcohol continue home medication of atenolol and addition of lisinopril bp fluctuated between 170/100 to 12/04/18 12:45 145/98 12/04/18 12:45 patient is asymptomatic denies dizziness no chest pain 12/04/18 12:47 Assessment: 12/04/18 12:51 opiate withdrawal sx Plan: continue methadone detox
[2018-12-04] MEDS ORDERED: LISINOPRIL 10 MG TABLET (FP) PO ONE (14:00)
[2018-12-04] MEDS ORDERED: HYDROCHLOROTHIAZIDE 25 MG TABLET (FP) PO ONE (15:22)
--- NOTE | 2018-12-04 15:27 | PN ---
BHS Progress Note Note: despite antihypertensive medication increased patient continue having spike of bp as current noted additional amlodipine and hctz patient is asymptomatic no chest pain no dizziness no shortness of breath denies headache denies blurred vision
[2018-12-04] MEDS ORDERED: amLODIPine BESYLATE 10 MG TABLET (FP) PO SCH (15:30)
[2018-12-04] MEDS: hydrOXYzine PAMOATE 25 MG CAPSULE (FP) PO PRN (22:05)
[2018-12-04] MEDS: THIAMINE HCL 100 MG TABLET (FP) PO SCH (22:05)
[2018-12-04] MEDS: METHOCARBAMOL 500 MG TABLET PO PRN (22:05)
[2018-12-05] MEDS ORDERED: METHADONE HCL 5 MG TABLET (FOR DETOX USE ONLY) PO ONE (06:00)
[2018-12-05 07:04] VITALS: BP 157/73; PULSE 60; TEMP 98.3
[2018-12-05] MEDS ORDERED: LISINOPRIL 20 MG TABLET (FP) PO SCH (10:00)
[2018-12-05] MEDS ORDERED: HYDROCHLOROTHIAZIDE 25 MG TABLET (FP) PO SCH (10:00)
--- NOTE | 2018-12-05 13:17 | DS ---
[facility] Detox Discharge Summary Admission Date: 11/29/18 Discharge Date: 12/05/18 - History Present History: Opioid Dependence Additional Comments: doing well with methadone detox regimen bp appeared limited under 200 systolic patient insists to leave without daily antihypertensive medication patient agrees to follow up with a designated primary care provider discuss the risks of uncontrolled bp and benefits of medication assisted treatment program encourage hot die picker narcan from pharmacy patient is alert oriented x 3 denies chest pain no shortness of breath denies dizziness ambulating steady gait Pertinent Past History: hypertension - Physical Exam Results Vital Signs: Vital Signs Temperature 98.3 F 12/05/18 07:04 Pulse Rate 60 12/05/18 07:04 Respiratory Rate 18 12/05/18 07:04 Blood Pressure 157/73 12/05/18 07:04 O2 Sat by Pulse Oximetry (%) Pertinent Admission Physical Exam Findings: opiate withdrawal sx Laboratory Last Values WBC 4.3 K/mm3 (4.0-10.0) 11/30/18 08:20 RBC 4.64 M/mm3 (4.00-5.60) 11/30/18 08:20 Hgb 13.2 GM/dL (11.7-16.9) 11/30/18 08:20 Hct 39.3 % (35.4-49) 11/30/18 08:20 MCV 84.8 fl (80-96) 11/30/18 08:20 MCH 28.4 pg (25.7-33.7) 11/30/18 08:20 MCHC 33.5 g/dl (32.0-35.9) 11/30/18 08:20 RDW 13.1 % (11.9-15.9) 11/30/18 08:20 Plt Count 195 K/MM3 (134-434) 11/30/18 08:20 MPV 8.7 fl (7.5-11.1) 11/30/18 08:20 Sodium 143 mmol/L (136-145) 11/30/18 08:20 Potassium 3.9 mmol/L (3.5-5.1) 11/30/18 08:20 Chloride 109 mmol/L (98-107) H 11/30/18 08:20 Carbon Dioxide 29 mmol/L (21-32) 11/30/18 08:20 Anion Gap 5 MMOL/L (8-16) L 11/30/18 08:20 BUN 17.1 mg/dL (7-18) 11/30/18 08:20 Creatinine 1.4 mg/dL (0.55-1.3) H 11/30/18 08:20 Est GFR (CKD-EPI)AfAm 65.09 11/30/18 08:20 Est GFR (CKD-EPI)NonAf 56.16 11/30/18 08:20 Random Glucose 81 mg/dL (74-106) 11/30/18 08:20 Calcium 9.2 mg/dL (8.5-10.1) 11/30/18 08:20 Total Bilirubin 0.5 mg/dL (0.2-1) 11/30/18 08:20 AST 13 U/L (15-37) L 11/30/18 08:20 ALT 9 U/L (13-61) L 11/30/18 08:20 Alkaline Phosphatase 68 U/L (45-117) 11/30/18 08:20 Total Protein 6.7 g/dl (6.4-8.2) 11/30/18 08:20 Albumin 3.5 g/dl (3.4-5.0) 11/30/18 08:20 RPR Titer Nonreactive (NONREACTIVE) 11/30/18 08:20 lab noted - Treatment Hospital Course: Detox Protocol Followed, Detoxed Safely, Responded well, Discharged Condition Good, Rehab Referral Accepted Patient has Accepted a Rehab Referral to: [facility] - Medication Discharge Medications: Ambulatory Orders Atenolol [Tenormin] 50 mg PO HS 11/29/18 Atenolol [Tenormin] 150 mg PO AM 11/29/18 Atenolol [Tenormin -] 50 mg PO ONCE #60 tablet 12/04/18 Lisinopril [Prinivil] 20 mg PO DAILY #30 tablet 12/04/18 Naloxone HCl [Narcan] 4 mg NS ASDIR PRN #1 spray 12/04/18 - Diagnosis (1) Opioid dependence with withdrawal Status: Acute (2) Hypertension Status: Chronic Qualifiers: Hypertension type: essential hypertension (3) Nicotine dependence Status: Acute Qualifiers: Nicotine product type: cigarettes Substance use status: in withdrawal Qualified Code(s): F17.213 - Nicotine dependence, cigarettes, with withdrawal - AMA Did Patient Leave Against Medical Advice: No COWS (PN) - Opiate Withdrawal Resting Pulse: 0= [place] 80 or Below Sweatin= Chills/Flushing Restless Observation: 0= Sits Still Pupil Size: 0= Normal to Room Light Bone or Joint Aches: 1= Mild Discomfort Runny Nose/ Eye Tearin= Nasal Congestion GI Upset > 30mins: 1= Stomach Cramp Tremor Observation of Outstretched Hands: 1= Tremor [place], Not Seen Yawning Observation: 1= 1-2x During Session Anxiety or Irritability: 1=Feels Anxious/Irritable Goose Flesh Skin: 0=Smooth Skin COWS Score: 7
== END 2018-12-05 08:40 | disposition home or self-care (01) | DRG 773 ==
LOC: YASAS 11:56 → Y3N 18:23
PROVIDERS: ADMIT Surgery; ATTEND Surgery
PROC: HZ2ZZZZ Detoxification Services for Substance Abuse Treatment (ICD-10-PCS; principal; 2018-11-29)
DX: F11.23 Opioid dependence with withdrawal (principal); F17.213 Nicotine dependence, cigarettes, with withdrawal; F32.9 Major depressive disorder, single episode, unspecified; I16.0 Hypertensive urgency; R79.89 Other specified abnormal findings of blood chemistry; Z59.0 Homelessness
CPT/HCPCS: 36415; 80053; 85027; 86593; J0735

== ENCOUNTER 2018-11-29 18:48 | Emergency (ER) | payer OTHER | END 2018-11-29 23:10 | disposition home or self-care (01) | LOC: JER 18:48 ==